=== PATIENT | female | born 1990 | race Caucasian/White ===

== ENCOUNTER 2016-12-17 20:18 | Inpatient (IN) | payer OTHER ==
[~2016-12-17] VITALS: Ht 171.8 cm; Wt 115.2 kg
[~2016-12-17 20:18] MED LIST: HYDR-4003 PO; PENI500T PO
[2016-12-17] MEDS ORDERED: fentaNYL-PF 50 mCg/mL 2 mL Inj IVPUSH PRN (20:55)
[2016-12-17] MEDS ORDERED: Ondansetron 2 mg/mL 2 mL Inj IVPUSH PRN (20:55)
[2016-12-17] MEDS ORDERED: Oxytocin 10 Unit/mL Inj IM PRN (20:55)
[2016-12-17] MEDS ORDERED: Oxytocin 30 Units/500 mL LR 30 UNITS in IV Premix 1 EACH IV PRN ×2 (20:55→23:25)
[2016-12-17] MEDS ORDERED: Penicillin G K Inj 5,000,000 UNITS in Dextrose 5% Minibag Plus 100 ML IV ONE (20:55)
[2016-12-17] MEDS ORDERED: Sodium Chloride LOK Flush 10 mL Syringe IVFLUSH PRN (20:55)
[2016-12-17] MEDS ORDERED: Hemorrhage Kit, Post Partum XX ONE (20:55)
[2016-12-17] MEDS ORDERED: Methylergonovine 0.2 mg/mL Inj IM PRN (20:55)
[2016-12-17] MEDS ORDERED: Carboprost 250 mCg/mL Inj IM PRN (20:55)
[2016-12-17] MEDS ORDERED: CALC500T9 PO (21:14)
[2016-12-17] MEDS ORDERED: PROM25TA14 PO (21:14)
[2016-12-17] MEDS ORDERED: PREN-148 PO (21:14)
[2016-12-17 21:30] LABS: Mean Corpuscular Hemoglobin 28.5 pg (27.0-35.0); Mean Corpuscular Volume 87.3 fL (81-100)
[2016-12-17] MEDS: Lactated Ringer's 1,000 ML IV PRN (21:56)
[2016-12-18] MEDS: Penicillin G K Inj 3,000,000 UNITS in IV Premix 1 EACH IV SCH ×3 (01:37→10:42)
[2016-12-18] MEDS ORDERED: fentaNYL 2 mCg/mL-Bupivicaine 0.125% 100 mL Premix EPIDURAL ONE (02:57)
--- NOTE | 2016-12-18 03:14 | PCM.HPANE ---
Patient Data Date of Service: Dec 18, 2016 Surgeon Admitting Provider:Devin Fournier MD Attending Provider:Devin Fournier MD Primary Care Physician:Devin Fournier MD Other Provider: Reason for Visit Term Labor Check TERM LABOR CHECK Ht/WT & BMI Body Mass Index Allergies Coded Allergies: No Known Allergies (Verified Allergy, Unknown, 12/28/14) Past Anesthesia History Anesthesia History: Denies:: Abnormal Airway, Anesthesia Reactions, Difficult Intubation, Fam Anesthesia Reaction, Fam Malignant Hypertherm, Malignant Hyperthermia Diabetes History Hx Diabetes?: No Medications Reported Medications Vit No.124/Iron/FA ( Vitamin Tablet)27 Mg Iron-800 Mcg Tablet1 Each PO 12/17/16 Promethazine 25 Mg Vitbbv30 Mg PO Q6H PRN For Nausea Ref 0 12/17/16 Calcium Carbonate (Tums)500 Mg Tab.tews105 Mg PO PRN PRN For Indigestion 30 Days 12/17/16 Discontinued Scripts Hydrocodone-Acetaminophen 5-325 mg 1 Each Tablet1-2 Tablet PO Q4H PRN For Pain # 25 TABLET Ref 0 Prov:Amandeep Ordonez MD 03/12/15 Penicillin V Potassium 500 Mg [id number] Mg PO QID #40 TABLET Ref 0 Prov:Amandeep Ordonez MD 03/12/15 History History of ENT Problems?: No HEENT History: Denies:: Abnormal Airway Cataracts Difficult Intubation Dysphagia Glaucoma Hearing Problem Sinus Problem TMJ Denture Type: None Teeth Condition: Within Normal Limits Hx of Heart Problems?: No Cardiovascular History: Denies:: Congestive Heart Failure Hypertension Hx of Respiratory Problem?: No Respiratory History: Denies:: Asthma COPD Chest Surgery Cough Dyspnea Emphysema Hemoptysis Oxygen Administration Pneumonia Pulmonary Embolism Tuberculosis Use of C-PAP Machine Use of Inhalers / NEBS Other Resp Pertinent History: Tobacco abuse, occasional MJ Hx Neurologic Problems?: No Neurological History: Denies:: Alzheimer's Disease CVA Dementia Dizziness Headaches Multiple Sclerosis Parkinson's Disease Peripheral Neuropathy Seizures TIA Hx of GI Problems?: No Gastrointestinal History: Denies:: Cirrhosis Diverticulitis Gall Bladder Disease Gastroesphageal Reflux Gastrointestinal Bleeding Heartburn Hepatitis Hiatal Hernia Liver Disease Rectal Bleeding Hx of Problems?: No Genitourinary History: Denies:: HX of Hemodialysis Kidney Stones Urinary Tract Infection Female Hx: Denies:: Currently Endometriosis Pelvic Inflammatory Problems with Breasts? Hx Musculoskeletal Problems?: No Musculoskeletal History: Denies:: Back Injury Degenerative Joint Fibromyalgia Joint Replacement Musculoskeletal Trauma Myasthenia Gravis Osteoarthritis Rheumatoid Arthritis Systemic Lupus Hx of Psycho/Social Problems?: No Hx Surgeries?: No Hx Diabetes: No Hx Alcohol Use: NoHx Substance Use: Yes (YELENA JUSTINEMARGUERITE) Smoking Status: Current Every Day Smoker Have You Smoked inLast 12 mo: Yes Stop/Bang Treated for Sleep Apnea?: No Do You Have a CPAP Machine?: No B- Body Mass Index > 35 kg/m2: Yes A- Age over 50: No N- Neck Large Circumference: No G- Gender Male: No CASTILLO Risk Assessment: High Risk, =/>3 Yes Risk Assessment Category Category 1A: Patient has history of documented sleep apnea, and HAS NOT received any narcotic, sedative or anesthesia administration during this stay. Category 1B: Patient has history of documented sleep apnea, and HAS received any narcotic , sedative or anesthesia administration during this stay Category 2: Patient has SUSPECTED Obstructive Sleep Apnea, and HAS received any narcotic , sedative or anesthesia administration during this stay. Category 3: Patient has SUSPECTED Obstructive Sleep Apnea and HAS NOT received narcotic, sedative or anesthesia administration during this stay. Category 4: Outpatient in Procedural Areas with known sleep apnea or who screen positive for High Risk via the STOP/BANG questionnaire. Exam Exam General Appearance: Alert, Oriented X3, Cooperative, No Acute Distress HEENT/AIRWAY: MP 2 Lungs: Clear to Auscultation, Normal Air Movement Heart: Exam Unremarkable, Regular Rate/Rhythm, No Murmurs/Rubs/Gallops Additional Information Obese, gravid abdomen Meds/Labs/Diagnostics Admission Meds Current Medications Penicillin G Potassium 2526669 units/Dextrose/ Water 100 ml @ 240 mls/hr ONCE ONCE IV Last administered on 12/17/16 21:30; Start 12/17/16 at 20:55; Stop at 21:19; Status DC Penicillin G Potassium/ Dextrose/Premix (Pfizerpen Inj/ IV Premix) 50 ml @ 100 mls/hr Q4 IV Last administered on 12/18/16 01:37; Start 12/18/16 at 04:30 Labs Test 12/17/16 20:50 12/17/16 23:40 White Blood Count 11.3th/mm3 (3.8-10.1) Red Blood Count 4.17mil/mm3 (3.90-5.20) Hemoglobin 11.9g/dL (12.0-15.6) Hematocrit 36.4% (35.0-46.0) Mean Corpuscular Volume 87.3fL (81-100) Mean Corpuscular Hemoglobin 28.5pg (27.0-35.0) Mean Corpuscular Hemoglobin Concent 32.7% (32.0-37.0) Red Cell Distribution Width 13.5% (12.3-15.4) Platelet Count 271bil/L (150-400) Hold Urine Received (Received) Urine Opiates Screen Negative Urine Methadone Screen Negative Urine Barbiturates Screen Negative Urine Amphetamines Screen Negative Urine Benzodiazepines Screen Negative Urine Cocaine Metabolite Screen Negative Urine Cannabinoids Screen Positive Plan Impression Patient chart reviewed, patient interviewed and anesthestic plan with risks, benefits, and alternatives discussed, and informed consent obtained. NPO per Anesth. Guidelines: Yes ASA Physical Status: ASA2 Mod Systemic Disease Anesthetic Plan: Epidural Bene/Risks/Altern/Consents: Yes HP Complete Prior to Induction: Yes Kamar Alvarenga DO Dec 18, 2016 03:14
[2016-12-18] MEDS: Lactated Ringer's 1,000 ML IV PRN (03:38)
[2016-12-18] MEDS ORDERED: Atropine 1 mg/10 mL (Code) Syringe IVPUSH PRN (04:00)
[2016-12-18] MEDS ORDERED: EPHEDrine Sulfate 50 mg/mL Inj IVPUSH PRN (04:00)
[2016-12-18] MEDS ORDERED: Lactated Ringer's 500 ML IV ONE (04:00)
[2016-12-18] MEDS ORDERED: fentaNYL 2 mCg/mL-Bupiv 0.125% 100 ML EPIDURAL SCH (04:00)
[2016-12-18] MEDS: Lactated Ringer's 1,000 ML IV SCH ×2 (05:42→12:00)
--- NOTE | 2016-12-18 07:08 | HP ---
[address] [address] HISTORY AND PHYSICAL PATIENT: TYRESE WANG : 1990 MR#: [id number] ADMIT: 12/17/2016 JOB ID: [id number] DATE OF ADMISSION: 12/17/2016 CHIEF COMPLAINT: Spontaneous rupture of membranes. HISTORY OF PRESENT ILLNESS: This is a 26-year-old G2, P0 0-1-0 female who is presenting at 39 + 3 weeks gestation complaining of spontaneous rupture of membranes. Her is complicated by obesity BMI of 34, tobacco and marijuana use during , low-grade squamous intraepithelial lesion Pap smear during , history of chlamydia in the past, and GBS positive status. She presented complaining of rupture of membranes and was noted to be spontaneously ruptured. PAST MEDICAL HISTORY: Denies. PAST SURGICAL HISTORY: She has had facial surgery with an I and D of a right-sided facial abscess with extraction of three teeth in the past. OBSTETRIC HISTORY: G1 was an elective termination of completed with a suction dilation and curettage. G2 is her current complicated as noted above. SOCIAL HISTORY: She uses marijuana as well as tobacco use. She does have a positive UDS screen for marijuana. FAMILY HISTORY: Noncontributory. MEDICATIONS: 1. vitamins. 2. Tums p.r.n. ALLERGIES: She has no known drug allergies. PHYSICAL EXAMINATION: Objectively at the time of admission she is grossly ruptured. Her blood pressure is 100/56, heart rate of 64, her temperature is 16 and temperature is 36.6. In general she is awake, alert, oriented. She is in no acute distress. Heart is regular rate and rhythm. Lungs are clear to auscultation bilaterally. Abdomen is soft. It is nontender and nondistended. Gravid with size larger than dates, but this is likely related to habitus. It is difficult to get the estimated weight due to the position she is in bed. Her extremities show no tenderness, no lower extremity edema. heart tones show 130s baseline moderate variability and accelerations present. She also has mild variable decelerations and occasional deep variable decelerations. She is izaiah every 1-3 minutes on the monitor an her Pitocin is currently at 6 milliunits which was started after arrival. Her cervix currently at a 7, 100% effaced, -1 station. LABORATORY DATA: laboratory data: She has a blood type of O positive, antibody screen negative. She is rubella immune. Hep B surface antigen negative, RPR nonreactive, HIV negative, and GBS positive. At the time of admission, her white count is 11.3, hemoglobin 11.9, and platelets are 271. ASSESSMENT AND PLAN: This is a 26-year-old, G2, P0 0-1-0 female admitted at 39 + 3 weeks gestation admitted with spontaneous rupture of membranes. complicated by obesity, tobacco and marijuana use, abnormal Pap smear, history of chlamydia, and group B Streptococcus positive status. My plan at this point in time, the patient is admitted grossly ruptured, penicillin was started per protocol for GBS positive status. After making minimal cervical change and izaiah irregularly Pitocin was started per protocol, and she is now making good cervical change. Her cervix is currently 7 cm dilated and 100% effaced. At this point in time, we will continue with expectant management. Anticipate a spontaneous vaginal delivery. ERIC
[2016-12-18] MEDS ORDERED: Lactated Ringer's 1,000 ML IV SCH (13:29)
[2016-12-18] MEDS ORDERED: Carboprost 250 mCg/mL Inj IM PRN (13:30)
[2016-12-18] MEDS ORDERED: Witch Hazel-Glycerin Pads TOPICAL PRN (13:30)
[2016-12-18] MEDS ORDERED: Hemorrhage Kit, Post Partum XX ONE (13:30)
[2016-12-18] MEDS ORDERED: Oxytocin 10 Unit/mL Inj IM PRN (13:30)
[2016-12-18] MEDS ORDERED: LANOlin HPA 7 Gm Ointment TOPICAL PRN (13:30)
[2016-12-18] MEDS ORDERED: Methylergonovine 0.2 mg/mL Inj IM PRN (13:30)
[2016-12-18] MEDS ORDERED: Oxytocin 30 Units/500 mL LR 30 UNITS in IV Premix 1 EACH IV PRN (13:30)
[2016-12-18] MEDS ORDERED: Benzocaine (Dermoplast) 20% 60 Gm Spray TOPICAL PRN (13:30)
--- NOTE | 2016-12-18 14:01 | OP ---
[address] [address] OPERATIVE REPORT PATIENT: TYRESE WANG : 1990 MR#: [id number] ADMIT: 12/17/2016 JOB ID: [id number] DATE OF SURGERY: 12/18/2016 SURGEON: PREOPERATIVE DIAGNOSIS(ES): POSTOPERATIVE DIAGNOSIS(ES): DELIVERY NOTE: This is a 26-year-old female. She is 1, para 1, now status post vaginal delivery. The patient was [place] [facility] for rupture of membranes and Pitocin started for induction. She gradually had started her regular contractions and she got epidural for pain management. This morning, when I started my shift, she was 7 cm dilated, 100% effaced, at zero station. She had a category 2 tracing with variable deceleration. Pitocin stopped and the heart tracing recovered. The patient has continued to have a regular contractions. She was noticed to be 9 cm dilated at 9:30 a.m. When I examined patient at 11:30, she was noticed to have states of anterior lip rim. At this time, her labor pain was well controlled. Her heart tracing was reassuring. The patient was allowed to continue her labor, and at 1:00, she was noticed to be fully dilated and was instructed to push. At that time was noticed thick meconium, but the heart tracing was still reassuring, although there was slowing down of baby heart tracing but recovered well after the pushing stopped. The patient was instructed to continue with pushing. She had very good effort to push and there was significant descent of head. The delivered at GIORGIO position. The shoulder and chest delivered without difficulty. Thick meconium still present during the delivery. The was placed on mother's chest and was noted to have normal tone but there was no spontaneous crying of baby, so at this time, decision was made to clamped and cut the cord without waiting for a minute. After the cord clamped and cut, there was spontaneous onset of of crying and crying. The was able to be kept on mother's chest. Regular cord blood collected. Placenta delivered spontaneously complete completely and examined with three-vessel cord. Then, the uterus was massaged after the delivery of the placenta. Pitocin started. There was gradually better contraction of the uterus. The perineum examined with no laceration of the perineum. There was about 2 cm laceration inside her right labia and this was closed by 3-0 Vicryl continuously. Hemostasis confirmed after the repair. The patient tolerated the delivery well. All instrument, needles, laps and gauzes counted correct twice. EBL during the delivery was 200 cc and this is a male . score 8 and 9. The weight was not available at delivery.
--- NOTE | 2016-12-18 20:50 | PCM.ANEP1 ---
Post Anesthesia PACU Phase 1 Assessment Anesthetic Administered: Epidural Level of Alertness: Awake, talking YEAGER's with Equal Strength: Yes Pain: No Pain Scale Score: 2 Nausea or Vomiting: No CV Function & Hydration Stable: No Airway Device: N/A Oxygen Delivery: Room Air Lungs: Clear to Auscultation, Normal Air Movement Dermatome Level: Full Sensation PACU Phase 2 Assessment Complications: No Follow up Care: N/A Patient Instructions Provided: N/A Rehan Herman MD Dec 18, 2016 20:50
[2016-12-19 07:21] LABS: Mean Corpuscular Hemoglobin 28.4 pg (27.0-35.0); Mean Corpuscular Volume 87.1 fL (81-100)
--- NOTE | 2016-12-19 08:55 | PCM.DIOB ---
Obstetrical Disch Instruction Date of Service: Dec 19, 2016 Dates of Hospitalization Date of Hospital Admission Dec 17, 2016 at 20:44 Providers Admitting Physician: Devin Fournier MD Primary Care Physician: Devin Fournier MD Attending Physician: Devin Fournier MD Discharge Diagnosis Discharge Diagnosis Status post normal vaginal delivery Problems: Diet Discharge Diet: No restrictions Activity Discharge Activity-General: Pelvic Rest for 6 weeks (no sex, tampon nor douching ), Balance rest and activity, No lifting >10 pounds for 4-6 weeks Dressing and Incisional Care Hygiene: May shower, Perineal care, Dermoplast spray, Witch Airam pads Follow Up Plan Follow-up Provider (F9): Devin Fournier MD Follow-up appointment: Weeks (two) Call your provider for: Fever or Chills, Shortness of breath, Heavy vaginal bleeding, Heavy bleeding, Epigastric pain, Excessive constipation, Vaginal discomfort, Red painful breasts, Other (Headache , change in vision, nausea/ vomiting, leg swelling, pain or change in color) Coleen Chase MD Dec 19, 2016 08:55
[2016-12-19] MEDS ORDERED: OXYC1TAB24 PO (09:02)
[2016-12-19] MEDS ORDERED: NICO1PAT5 TOPICAL (09:02)
[2016-12-19] MEDS ORDERED: IBUP-1827 PO (09:02)
--- NOTE | 2016-12-19 09:05 | PCM.DC.OB ---
Obstetrical Discharge Summary Date of Service Dec 19, 2016 Date of hospital admission Dec 17, 2016 at 20:44 Date of Discharge: Dec 19, 2016 Providers Admitting Physician: Devin Fournier MD Primary Care Physician: Devin Fournier MD Attending Physician: Devin Fournier MD Hospital Course: Discharge diagnosis: PPD#1 S/p and labial laceration repair. This is a 26-year-old, G2, P0 0-1-0 female admitted at 39 + 3 weeks gestation admitted with spontaneous rupture of membranes. complicated by: obesity, tobacco and marijuana use, abnormal Pap smear , history of chlamydia, and group B Streptococcus positive status. Outcome: 3562g male . score 8 and 9, see delivery note for details. Vital Signs (Last) Date Time Temp Pulse Resp B/P Pulse Ox O2 Delivery O2 Flow Rate FiO2 12/19/16 14:02 36.2 78 18 120/64 12/18/16 20:50 Room Air Laboratory Tests 72 Hours Test 12/17/16 20:50 12/17/16 23:40 12/19/16 06:55 White Blood Count 11.3th/mm3 (3.8-10.1) 17.6th/mm3 (3.8-10.1) Red Blood Count 4.17mil/mm3 (3.90-5.20) 3.94mil/mm3 (3.90-5.20) Hemoglobin 11.9g/dL (12.0-15.6) 11.2g/dL (12.0-15.6) Hematocrit 36.4% (35.0-46.0) 34.3% (35.0-46.0) Mean Corpuscular Volume 87.3fL (81-100) 87.1fL (81-100) Mean Corpuscular Hemoglobin 28.5pg (27.0-35.0) 28.4pg (27.0-35.0) Mean Corpuscular Hemoglobin Concent 32.7% (32.0-37.0) 32.7% (32.0-37.0) Red Cell Distribution Width 13.5% (12.3-15.4) 13.5% (12.3-15.4) Platelet Count 271bil/L (150-400) 239bil/L (150-400) Hold Urine Received (Received) Urine Opiates Screen Negative Urine Methadone Screen Negative Urine Barbiturates Screen Negative Urine Amphetamines Screen Negative Urine Benzodiazepines Screen Negative Urine Cocaine Metabolite Screen Negative Urine Cannabinoids Screen Positive laboratory data: She has a blood type of O positive, antibody screen negative. She is rubella immune. Hep B surface antigen negative, RPR nonreactive, HIV negative, and GBS positive. At the time of admission, her white count is 11.3, hemoglobin 11.9, and platelets are 271. . Calcium Carbonate (Tums) 500 Mg Tab.chew 500 MG PO PRN PRN PRN For Indigestion ( Reported) Ibuprofen (Ibuprofen) 600 Mg Tablet 600 MG PO QID PRN PRN For Pain Prescribed by: SAIRA HSU MD Nicotine 14 mg/24 hr Patch (Nicotine 14 mg/24 hr Patch) 1 Each Patch.td24 1 PATCH TOPICAL DAILY Prescribed by: SAIRA HSU MD Vit No.124/Iron/FA ( Vitamin Tablet) 27 Mg Iron-800 Mcg Tablet 1 EACH PO (Reported) Promethazine (Promethazine) 25 Mg Tablet 25 MG PO Q6H PRN PRN For Nausea ( Reported) oxyCODONE-Acetaminophen 5-325 mg (oxyCODONE-Acetaminophen 5-325 mg) 1 Each Tablet 1-2 TAB PO Q6H PRN PRN For Pain Prescribed by: SAIRA HSU MD Discontinued Medications Hydrocodone-Acetaminophen 5-325 mg (Hydrocodone-Acetaminophen 5-325 mg) 1 Each Tablet 1-2 TABLET PO Q4H PRN PRN For Pain Prescribed by: WINSTON VALERO MD Penicillin V Potassium (Penicillin V Potassium) 500 Mg Tablet 500 MG PO QID Prescribed by: WINSTON VALERO MD Disposition Home. Discharge condition: Stable. Diet Discharge Diet: No restrictions Activity Discharge Activity-General: Pelvic Rest for 6 weeks (no sex, tampon nor douching ), Balance rest and activity, No lifting >10 pounds for 4-6 weeks Dressing and Incisional Care Hygiene: May shower, Perineal care, Dermoplast spray, Witch Airam pads Follow Up Plan Follow-up Provider (F9): Devin Fournier MD Follow-up appointment: Weeks (two) Call your provider for: Fever or Chills, Shortness of breath, Heavy vaginal bleeding, Heavy bleeding, Epigastric pain, Excessive constipation, Vaginal discomfort, Red painful breasts, Other (Headache , change in vision, nausea/ vomiting, leg swelling, pain or change in color) Saira Hsu MD Dec 19, 2016 09:05
--- NOTE | 2016-12-19 09:08 | NUR ---
received SW referral. 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
--- NOTE | 2016-12-19 12:55 | NUR ---
Social Work Note - Family assessment Olinda Messina is a 26 yr old who delivered baby boy Rigoberto Hilton yesterday. FOB is Benito Hilton. Reason for SW consult: Marijuana use during . Current living situation: MOB and FOB live in [place] with MOB's sister. FOB works time clerk, MOB plans to stay home with the baby. No previous children Substance hx: THERESA admits to THC during . She understands that she exposed baby to marijuana and states that she does not want to continue using. She denies needing treatment and will stop on her own. ASIA agrees that there will be no smoking around the baby. Mental Health: THERESA denies any hx of mental health. Source of income: [employer] job, WIC and family is going to apply for food stamps - aware of how to apply. No hx of DV issues noted in EMR> Supports: Family states that they have extended family to help, feel ready for baby at home. COREMAKER PIPE explained to family that CPS will be contacted for THC during and will likely follow up when they go home. CPS report filed with [facility] CPS [phone], Courtney Devries. COREMAKER PIPE discussed case with RN and no other needs identified. COREMAKER PIPE provided family with Maternity Support services resource list. Active listened and provided support. COREMAKER PIPE will follow if needs arise. Plan: Baby to go home with family in [place] - CPS will follow up if warranted. ANDREA Waters
[2016-12-19 14:02] VITALS: BP 120/64; PULSE 78; RESP 18
== END 2016-12-19 14:22 | disposition home or self-care (01) | DRG 775 ==
LOC: FBCO 20:18 → FBC 20:44
PROVIDERS: ADMIT Obstetrics & Gynecology; ATTEND Obstetrics & Gynecology
PROC: 10E0XZZ Delivery of Products of Conception, External Approach (ICD-10-PCS; principal; 2016-12-18)
PROC: 0HQ9XZZ Repair Perineum Skin, External Approach (ICD-10-PCS; 2016-12-18)
DX: O42.02 Full-term premature rupture of membranes, onset of labor within 24 hours of rupture (principal); O99.324 Drug use complicating childbirth; O99.824 Streptococcus B carrier state complicating childbirth; O70.0 First degree perineal laceration during delivery; F12.90 Cannabis use, unspecified, uncomplicated; O99.334 Smoking (tobacco) complicating childbirth; O77.0 Labor and delivery complicated by meconium in amniotic fluid; O76 Abnormality in fetal heart rate and rhythm complicating labor and delivery; O99.214 Obesity complicating childbirth; E66.9 Obesity, unspecified; Z68.39 Body mass index [BMI] 39.0-39.9, adult; Z3A.39 39 weeks gestation of pregnancy; Z37.0 Single live birth